=== PATIENT | male | born 1940 | race Caucasian/White ===

== ENCOUNTER 2022-02-19 08:13 | Day surgery (SDC) | payer MEDICARE ==
[~2022-02-19] VITALS: Ht 172.7 cm; Wt 91.9 kg
[2022-02-19] VITALS (7 sets, daily range): BP systolic 111–139; BP diastolic 47–77
[~2022-02-19 08:13] MED LIST: ALLO100T PO; BENA5TAB39 PO; DIGO125T PO; DILT-36 PO; FURO40TA4 PO; METF-900 PO; OMEP-84 PO; POTA20PA40 PO; SIMV-341 PO; WARF-113 PO
[2022-02-19] MEDS ORDERED: normal saline 1000ml 1,000 ML IV SCH (08:39)
[2022-02-19] MEDS ORDERED: vancomycin 1,500 MG in NS 300ml IV soln IV ONE (08:39)
[2022-02-19] MEDS ORDERED: ceFAZolin inj. 2,000 MG in dextrose 5%-water 100 ML IV ONE (08:39)
[2022-02-19] MEDS ORDERED: GABA300T25 PO (08:53)
[2022-02-19] MEDS ORDERED: METO-395 PO (08:53)
[2022-02-19] MEDS ORDERED: RIVA15TA PO (08:53)
[2022-02-19] MEDS ORDERED: fentaNYL/PF 50MCG/1 ML 2ML syringe ONE (09:09)
[2022-02-19] MEDS ORDERED: LIDOCAINE 2% w/EPI 1:100:000 30mL injection MDV**cath lab 1 only ONE (09:09)
[2022-02-19] MEDS ORDERED: vancomycin 1,000mg inj ONE (09:09)
[2022-02-19] MEDS ORDERED: midazolam 1 mg/ML 2ml injection ONE ×2 (09:09→09:58)
[2022-02-19 09:20] LABS: BASOPHILS % (AUTO) 0.6 % (0-1); EOSINOPHILS # (AUTO) 0.3 X10'3 (0-0.9); EOSINOPHILS % (AUTO) 3.9 % (0-6); HEMATOCRIT 43.1 % (42.0-52.0); HEMOGLOBIN 14.1 g/dl (14.0-17.9); LYMPHOCYTES # (AUTO) 1.4 X10'3 (1.1-4.8); LYMPHOCYTES % (AUTO) 16.3 % (21-51); MEAN CORPUSCULAR HEMOGLOBIN 32.3 PG (27.0-31.0); MEAN CORPUSCULAR HGB CONC 32.7 g/dL (33.0-36.5); MEAN PLATELET VOLUME 9.2 FL (7.4-10.4); MONOCYTES # (AUTO) 0.8 X10'3 (0-0.9); MONOCYTES % (AUTO) 9.8 % (2-12); NEUTROPHILS # (AUTO) 5.8 X10'3 (1.8-7.7); NEUTROPHILS % (AUTO) 69.4 % (42-75); PLATELET COUNT 94 X10'3 (140-440); RED BLOOD COUNT 4.36 X10'6 (4.70-6.10); RED CELL DISTRIBUTION WIDTH 15.4 % (11.5-14.5); WHITE BLOOD COUNT 8.4 X10'3 (4.5-11.0)
[2022-02-19 09:34] LABS: ALBUMIN 3.5 G/DL (3.4-5.0); ANION GAP 6 (8-16); BLOOD UREA NITROGEN 27 MG/DL (7-18); BUN/CREATININE RATIO 19.1 (5.4-32.0); CALCIUM 8.7 MG/DL (8.5-10.1); CHLORIDE 107 MMOL/L (99-107); CREATININE 1.41 MG/DL (0.60-1.10); GLUCOSE 114 MG/DL (70-104); MAGNESIUM 2.1 MG/DL (1.5-2.4); POTASSIUM 4.1 MMOL/L (3.5-5.1); SODIUM 140 MMOL/L (135-145); eGFR 48 ML/MIN
[2022-02-19] MEDS ORDERED: normal saline 1000ml 400 ML IV SCH (10:54)
[2022-02-19] MEDS ORDERED: HYDROcodone/acetaminophen 5mg/325mg tablet PO PRN (10:55)
[2022-02-19] MEDS ORDERED: HYDROcodone/acetaminophen 10/325mg tab PO PRN (10:55)
== END 2022-02-19 12:30 | disposition home or self-care (01) ==
LOC: SSTAY O 08:13
PROVIDERS: ATTEND Internal Medicine Cardiovascular Disease
DX: Z45.010 Encounter for checking and testing of cardiac pacemaker pulse generator [battery] (principal); I48.20 Chronic atrial fibrillation, unspecified; I25.119 Atherosclerotic heart disease of native coronary artery with unspecified angina pectoris; I08.9 Rheumatic multiple valve disease, unspecified; I49.5 Sick sinus syndrome; Z95.2 Presence of prosthetic heart valve; I10 Essential (primary) hypertension; E78.5 Hyperlipidemia, unspecified; E11.9 Type 2 diabetes mellitus without complications; G47.30 Sleep apnea, unspecified; Z79.01 Long term (current) use of anticoagulants; I42.9 Cardiomyopathy, unspecified; Z79.899 Other long term (current) drug therapy; Z98.890 Other specified postprocedural states; Z72.89 Other problems related to lifestyle; Z88.6 Allergy status to analgesic agent
CPT/HCPCS: 33227; 36415; 80048; 83735; 85025; 85610; 93005; 99152; C1786; J2250; J3010; J3370; J3490; J7030; J7040; 99153; A4620